=== PATIENT | male | born 1975 | race Caucasian/White ===

== ENCOUNTER → 2019-07-08 18:46 | Outpatient (ROUT) | payer OTHER, SELFPAY ==
[2019-07-08 19:03] LABS: Add Manual Diff / Slide Review NO; Basophils Absolute Auto 0 /uL (0-100); Basophils Percent Auto 0.3 % (0-2); Eosinophils Absolute Auto 100 /uL (0-450); Eosinophils Percent Auto 1.6 % (2-4); Hematocrit 45.6 % (41-53); Hemoglobin 15.6 g/dL (13.5-17.5); Lymphocytes Absolute Auto 2400 /uL (1100-4500); Lymphocytes Percent Auto 39.8 % (25-40); Mean Corpuscular HGB Conc 34.2 % (30-36); Mean Corpuscular Hemoglobin 31.1 PG (26-34); Mean Corpuscular Volume 90.8 fL (80-100); Monocytes Absolute Auto 400 /uL (0-900); Monocytes Percent Auto 6.1 % (3-14); Neutrophils Absolute Auto 3100 /uL (1500-7000); Neutrophils Percent Auto 52.2 % (50-75); Platelet Count 244 X10^3/uL (150-400); Red Blood Cell Count 5.02 X10^6/uL (4.5-5.9); Red Cell Distribution Width 12.7 % (11.6-14.8); White Blood Cell Count 5.9 X10^3/uL (4.5-11.0)
[2019-07-08 19:16] LABS: Alanine Aminotransferase 40 IU/L (<50); Albumin 4.6 g/dL (3.5-5.0); Albumin Globulin Ratio 1.8 (1.0-2.8); Alkaline Phosphatase 67 U/L (38-126); Aspartate Aminotransferase 41 IU/L (17-59); Bilirubin Total 0.9 mg/dL (0.2-1.3); Blood Urea Nitrogen 17 mg/dL (9-20); Calcium 10.1 mg/dL (8.4-10.2); Carbon Dioxide 31 mmol/L (22-32); Chloride 100 mmol/L (98-107); Cholesterol 249 mg/dL (140-199); Estimated Glomerular Filt Rate > 60.0 mL/min (>60); Globulin 2.6 g/dL (1.7-4.1); Glucose 83 mg/dL (70-100); HDL Cholesterol 41 mg/dL (40-60); HEMOLYSIS < 15 (0-50); LDL Cholesterol Calculated 167 mg/dL (<100); Magnesium 2.3 mg/dL (1.6-2.3); Potassium 4.4 mmol/L (3.4-5.1); Sodium 139 mmol/L (137-145); Total Protein 7.2 g/dL (6.3-8.2); Triglycerides 207 mg/dL (35-150)
[2019-07-08 19:17] LABS: C-Reactive Protein Quant < 0.5 mg/dL (<1.0)
[2019-07-08 19:29] LABS: Erythrocyte Sedimentation Rate 1 MM/HR (0-15)
[2019-07-08 19:30] LABS: Vitamin D 25 Hydroxy (D3) 33.3 ng/mL (30.0-100.0)
== END ==
PROVIDERS: Visit Provider Physician Assistant
DX: M79.10 Myalgia, unspecified site (principal); E55.9 Vitamin D deficiency, unspecified; E78.2 Mixed hyperlipidemia
CPT/HCPCS: 80053; 80061; 82306; 83735; 85025; 85651; 86140

== ENCOUNTER → 2019-07-14 14:28 | Outpatient (CLI) | payer OTHER, SELFPAY ==
--- NOTE | 2019-07-14 | DI.US.S_ITS ---
PROCEDURE: US SCROTUM INDICATIONS: inguinal hernia/testicular mass with pain TECHNIQUE: Real-time scanning was performed of the scrotum and testicles, with image documentation. Color and pulse Doppler interrogation was performed of both testicles. COMPARISON: None. FINDINGS: Right: Testicle is normal in size at 3.6 x 2.7 x 3.1 cm, and homogenous in echotexture. Epididymis is normal in overall size and morphology. 2 mm epididymal cyst. Small. hydrocele. No varicoceles. Overlying scrotal skin is normal in thickness. Left: Testicle is normal in size at 4.0 x 2.6 x 3.1 cm, and homogeneous in echotexture. Epididymis is normal in overall size and morphology. Small hydrocele. No varicoceles. Overlying scrotal skin is normal in thickness. Doppler: Color and pulse Doppler demonstrate normal and symmetric arterial flow in both testicles. Reducible, fat-containing right inguinal hernia present. IMPRESSION: 1. 2 mm right epididymal cyst. 2. Normal testicles bilaterally. 3. Right inguinal hernia. 4. Small hydroceles. Dictated by: John PURDY Interpreted: Brannon Benavidez MD on 07/14/2019 at 16:13 Approved by: Brannon Benavidez M.D. on 07/14/2019 at 18:29
== END ==
PROVIDERS: Visit Provider Physician Assistant
DX: K40.90 Unilateral inguinal hernia, without obstruction or gangrene, not specified as recurrent (principal); N50.3 Cyst of epididymis; N43.3 Hydrocele, unspecified
CPT/HCPCS: 76870

== ENCOUNTER → 2019-10-11 09:43 | Outpatient (CLI) | payer OTHER, SELFPAY ==
[2019-10-11 11:34] LABS: Influenza A - CEPHEID Flu A NEGATIVE (NEGATIVE); Influenza B - CEPHEID Flu B NEGATIVE (NEGATIVE)
[2019-10-13 05:35] LABS: COVID19 Sendout Not Detected (Not Detected)
== END ==
PROVIDERS: Visit Provider Physician Assistant
DX: R06.02 Shortness of breath (principal); R05 Cough
CPT/HCPCS: 87502; 87635

== ENCOUNTER → 2019-12-05 16:04 | Outpatient (CLI) | payer OTHER, SELFPAY ==
[2019-12-06 11:02] LABS: COVID19 Sendout NOT DETECTED
== END ==
PROVIDERS: Visit Provider Registered Nurse
DX: Z11.59 Encounter for screening for other viral diseases (principal)
CPT/HCPCS: 87635

== ENCOUNTER 2019-12-08 13:46 | Day surgery (SDC) | payer OTHER, SELFPAY ==
[2019-11-08 12:53] VITALS: BMI 27.4
[2019-12-08] VITALS (14 sets, daily range): BP systolic 93–133; BP diastolic 54–86; PULSE 80–113; RESP 13–23; TEMP 36.5–37.8; O2SAT 92–98; BMI 27.4
[2019-12-08] MEDS: LACTATED RINGERS 1,000 ML 100 ML IV ×2 (14:06→17:15)
--- NOTE | 2019-12-08 14:59 | PM.HP.1 ---
History of Present Illness History of Present Illness Date Patient Seen: 12/08/19 Time Patient Seen: 14:59 Chief complaint: [id number] W/POSS [id number] LAP VS OPEN Narrative: This is a 43-year-old man who has a history of vasectomy, and vasectomy reversal. In July he noticed a bulge in the right groin, and had an ultrasound which revealed a fat containing right inguinal hernia. He also had bilateral hydroceles and epididymal cyst seen on the ultrasound. He has seen a urologist regarding this, and was told not to pursue surgery for these urologic findings at this time. He is also considering a redo vasectomy, but was also told that this may be more complicated given that he has had a vasectomy and a reversal before, so he is holding off at this time. The right groin hernia has been bothering him more and more, and he notices it bulging out more and more. It does completely reduce when he lies down or when he relaxes. He denies any chronic constipation, chronic coughing, but he is a contractor, and does a good bit of lifting heavy things. He denies any symptoms of obstruction or incarceration. He mentions that he does sometimes have a pain that goes from his umbilicus down to his groin, for no clear reason. When he gets this pain it tends to bother him for a couple of days and then resolves. He denies any dysuria or other associated symptoms. He mentions that in addition to being a contractor, he is also on commercial airplane pilot, and would like to be able to get back to work within 2 weeks of surgery. ROS: Positive for joint pain. Thirteen system review is otherwise negative other than as mentioned below and in HPI. PE: GENERAL: Well groomed and cooperative. Appears stated age. Answers questions promptly and appropriately. Vital signs noted. HENT: Normocephalic, atraumatic. Hearing intact. Oral mucosa is pink and moist. EYES: Conjunctiva pink, sclera white, no periorbital swelling. CARDIOVASCULAR: Regular rate. No pedal edema. RESPIRATORY: Non-tachypneic, breathing comfortably on room air. GASTROINTESTINAL: Abdomen soft and non-distended; no significant umbilical hernia GENITALURINARY: No flank tenderness. Reducible right inguinal hernia, mildly tender to palpation. Mild laxity in the left inguinal floor, but no obvious hernia on that side. MUSCULOSKELETAL: Equal tone and mass bilaterally. SKIN: Warm, dry, soft, appropriate color for ethnicity. No other lesions, rashes, or wounds. NEURO: Alert and Oriented X 3. No gross sensory deficits, or cognitive issues. PSYCH: Appropriate affect and mood. Patient History Surgical History Hx of hand surgery (Acute) Hx of shoulder surgery (Acute) Family & Social History Family History Grandfather Heart disease Brother Skin cancer Family/Other Heart disease Social History: household members spouse,children Tobacco & Substance use: Smoking Status Never smoker alcohol intake never Meds Home Medications and Allergies Home Medications Medication Instructions Recorded Confirmed Type multivitamin 1 cap PO DAILY 08/04/19 11/08/19 History Spacer for inhaler #1 ea 10/11/19 10/11/19 Rx fluticasone propionate 220 1 puff INHALATION BID #12 gram 11/07/19 11/08/19 Rx mcg/actuation HFA aerosol inhaler Allergies Allergy/AdvReac Type Severity Reaction Status Date / Time Influenza Virus Vaccines AdvReac Severe hospitalized Verified 10/11/19 10:10 secondary to allergic reaction per patient Exam Vital Signs (past 8 hours): - 12/08/19 14:07 Temperature 98.3 F Pulse Rate 80 Respiratory Rate 20 Blood Pressure 133/86 Pulse Oximetry 98 Oxygen Delivery Method Room Air Objective Imaging US - abdomen: Radiologist's impression: Right groin fat containing inguinal hernia Assessment & Plan Assessment and plan (1) Right inguinal hernia: Current visit: No Status: Acute Assessment & Plan narrative: This is a 43-year-old man with a symptomatic right inguinal hernia. I've discussed with him the potential options for surgery. I've explained the risks and benefits of surgery including risk of bleeding, infection, damage to nearby structures, mesh infection, need for additional procedures, hernia recurrence, urinary dysfunction, sexual dysfunction, testicular atrophy, chronic pain. We discussed the options of open or laparoscopic surgery. He wants to get back to normal activity within a couple of weeks after surgery, and I have explained that the best option for that is going to be laparoscopic approach. I explained that I would see the other side during laparoscopic approach, and asked if he would like me to fix hernia on the left side if I would see one. He would like it fixed if I see one, even though he is asymptomatic on that side. He understands that fix in the left side he has the same degree of risk for all the above surgical risks as on the right side, even though he is asymptomatic on the left side. The patient understands and agrees to go ahead with surgery. 25 minutes were spent face to face with the patient. More than 50% of the time was spent in counseling and co-ordination of care regarding extensive discussion about the potential approaches for surgery, the risks of complications, and the benefits of repairing an asymptomatic left inguinal hernia wall we are going into repair these symptomatic right inguinal hernia. We also discussed the the expected recovery time, and postoperative course. Plan: Schedule for laparoscopic, possible open right and possible bilateral inguinal hernia repair with mesh COVID-19 COVID-19 status: Negative Result date/Date tested (Pos, Neg/Pending): 12/05/19 Time Spent With Patient Time with patient: 25 - 35 minutes Quality VTE Deep Vein Thrombosis/Pulmonary Embolism Present on Admission: No
[2019-12-08] MEDS: CEFAZOLIN 2 GM/100 ML FROZ.PIGGY IV (15:35)
--- NOTE | 2019-12-08 15:57 | SUR.OPER ---
Supine on padded OR bed, head on pillow, arms secured at sides. legs uncrossed, safety belt at thigh,
[2019-12-08] MEDS: BUPIVACAINE 0.25% W/ EPI 30 ML VIAL INJ ×2 (16:16→17:42)
--- NOTE | 2019-12-08 18:09 | PM.OP.1 ---
Operative Date/Time/Diagnoses Date of procedure: 12/08/19 Time of procedure: 18:09 Pre-op diagnosis: right possible left inguinal hernia Post-op diagnosis: other (Bilateral indirect inguinal hernias) Procedure & Clinicians Procedure: Laparoscopic repair of right incarcerated indirect and left indirect inguinal hernia Same procedure as scheduled: Yes Indications: 43 yo man with symptomatic right inguinal hernia. Surgeon: Loli Fan Click Yes if Unassisted: Yes Anesthesia Type: General Operative Notes Findings: Deep indirect inguinal hernias BL; right hernia with incarcerated fat tissue Specimen(s): none sent Prosthetic devices, grafts, tissues, transplants, or devices: BARD 3D max large x 2 Estimated Blood Loss (mL): 10 Procedure in detail: The patient was brought into the operating room and placed supine on the OR table. Sequential compression devices were placed on both legs and turned on. Appropriate perioperative antibiotics were given prior to the start of surgery. General anesthesia was induced the patient was intubated. A Kinsey catheter was placed sterilely in the bladder. The abdomen was prepped and draped in sterile fashion. Surgical time-out was conducted. Local anesthetic was injected under the skin just inferior to the umbilicus and a 5 mm vertical incision was made at this site. The umbilical stalk was grasped with a Stephanie and elevated. A Veress needle was passed through the fascia into proper position. The position was tested with a saline drop test which was appropriate for intra-abdominal Veress needle placement. The abdomen was then insufflated in the usual fashion. Once insufflated to 15 mm Hg the Veress needle was removed and a 5 mm optical trocar was placed under direct vision using a 5 mm 30 degree scope. Once the camera was inside the abdomen I took a look around. There was no injury from port placement. Two additional ports were placed in a similar fashion in the right and left mid clavicular line at the level of the umbilicus, one handbreadth lateral to the umbilicus. The umbilical port was upsized to a 10mm port. Attention was turned to the pelvis, and both inguinal regions were evaluated. Deep bilateral indirect hernias were seen, with incarcerated fat in the right hernia. Beginning on the right side local anesthetic was in the infiltrated into the abdominal wall using 0.25% Marcaine with epi, in the region of the expected peritoneal incision. Metzenbaum scissors attached to cautery were then used to incise the peritoneum transversely from the midline laterally to the ASIS, 10 cm superior to the inguinal hernia defect. The peritoneal flap was developed down to the indirect inguinal hernia defect. The incarcerated fat tissue was removed. Once the flap had been fully developed and the cord structures were completely exposed, and the hernia defect had been fully evaluated, I then exposed the pubic tubercle and push down the bladder so that there was space for good mesh placement. A large 3DMax macro porous mesh was then brought into the field. I placed it through the 10 mm port and positioned it within the surgical defect covering the direct, indirect, and femoral space with 5 cm overlap in each direction. I then secured the mesh to the pubic tubercle in 2 locations using dissolvable surgical tacks. I then secured the mesh to the abdominal wall at its superior edge, far away from the triangle of doom and the triangle of pain. These tacks were placed avoiding the epigastric vessels as well. Once the mesh was secured in place I brought up the peritoneal flap. There was no clam shelling or bending of the mesh when the peritoneal flap was brought up. I then secured the peritoneum up to the abdominal wall using the same surgical tacker, with dissolvable tacks. There was no gapping of the peritoneal flap or exposed mesh. There was a large hernia sac hanging down after the peritoneum was closed. The sac was since together using a PDS endoloop, to avoid inversion of the sac back into the inguinal canal. Attention was then turned to the left side. Local anesthetic was in the infiltrated into the abdominal wall using 0.25% Marcaine with epi, in the region of the expected peritoneal incision. Metzenbaum scissors attached to cautery were then used to incise the peritoneum transversely from the midline laterally to the ASIS, 10 cm superior to the inguinal hernia defect. The peritoneal flap was developed down to the inguinal hernia defect. Once the flap had been fully developed and the cord structures were completely exposed, and the hernia defect had been fully evaluated, I then exposed the pubic tubercle and push down the bladder so that there was space for good mesh placement. A large 3DMax macro porous mesh was then brought into the field. I placed it through the 10 mm port and positioned it within the surgical defect covering the direct, indirect, and femoral space with 5 cm overlap in each direction. I then secured the mesh to the pubic tubercle in 2 locations using dissolvable surgical tacks. I then secured the mesh to the abdominal wall at its superior edge, far away from the triangle of doom and the triangle of pain. These tacks were placed avoiding the epigastric vessels as well. Once the mesh was secured in place I brought up the peritoneal flap. There was no clam shelling or bending of the mesh when the peritoneal flap was brought up. I then secured the peritoneum up to the abdominal wall using the same surgical tacker, with dissolvable tacks. There was no gapping of the peritoneal flap or exposed mesh. At this point the mesh was well positioned, secured, and well covered. There was no exposed mesh, no bleeding, and the peritoneal flaps were in good position. I then infiltrated the abdominal wall in the area of dissection with an additional 20 mL of Exparel, combined with the remaining local anesthetic for total of 80 mL of 0.25% Marcaine for the case. At this point the umbilical port site was closed with 0 Vicryl suture in the fascia using a Pranav-Simón suture Passer. Insufflation was then removed from the abdomen, and the umbilical port site was closed with 3-0 Vicryl in the subcutaneous layers, and 4 Monocryl in the skin. The other 2 port sites were closed with 4 Monocryl in the skin. Each port site was sealed with Dermabond. Local anesthetic was given at each of the port sites and in the fascia. This concluded the procedure. At this point the needle sponge and instrument counts were correct. Patient was awakened from anesthesia and extubated. The Kinsey catheter was removed, and the testicles were brought down to ensure they were in proper position. The patient was transferred to the postanesthesia care unit in stable condition. Complications: none Post-operative Condition: stable Disposition: PACU
[2019-12-08] MEDS: fentaNYL 100 MCG/2 ML INJ IV ×2 (18:32→18:43)
[2019-12-08] MEDS: MEPERIDINE 50 MG/ML INJ IV (18:37)
--- NOTE | 2019-12-08 18:40 | SUR.PHASEI ---
rx given for shakes after pain med. denies nausea
[2019-12-08] MEDS: OXYCODONE/ACETAMINOPHEN 5/325 TABLET 1 TAB PO (18:47)
--- NOTE | 2019-12-08 19:00 | SUR.PHASEI ---
dozing, no longer shaking, acknowledges that he is feeling better. asking appropriate questions.
--- NOTE | 2019-12-08 19:00 | SUR.PHASEI ---
attempted a trial on 2LNP (see VS note). Returned to 3LNP
--- NOTE | 2019-12-08 19:22 | SUR.PHASEI ---
arousing spontaneously, states that pain is 'much better.' HOB elevated and trialing room air in preparation for discharge. resp unlabored, skin warm and dry, sites unchanged. Asking appropriate questions.
--- NOTE | 2019-12-08 20:09 | SUR.PHASEII ---
2000 to home w/daughter. stable on feet to transfer, pain level stable; denies nausea. No questions upon discharge
== END 2019-12-08 20:00 | disposition home or self-care (01) ==
PROVIDERS: PCP Physician Assistant; Referring Provider Surgery; Visit Provider Surgery
PROC: 0YQ64ZZ Repair Left Inguinal Region, Percutaneous Endoscopic Approach (ICD-10-PCS; CPT 49650; principal; 2019-12-08 14:00)
DX: K40.90 Unilateral inguinal hernia, without obstruction or gangrene, not specified as recurrent (principal); J45.909 Unspecified asthma, uncomplicated
CPT/HCPCS: 49650; C1781; J0360; J0690; J1100; J1885; J2175; J2405; J2704; J3010

== ENCOUNTER → 2020-01-24 12:08 | Outpatient (CLI) | payer OTHER, SELFPAY ==
--- NOTE | 2020-01-24 12:09 | DI.US.S_ITS ---
PROCEDURE: US SCROTUM INDICATIONS: SCROTAL SWELLING POST HERNIA REPAIR TECHNIQUE: Real-time scanning was performed of the scrotum and testicles, with image documentation. Color and pulse Doppler interrogation was performed of both testicles. COMPARISON: [facility], , US SCROTUM, 07/14/2019, 15:33. FINDINGS: Right: Testicle is normal in size at 3.1 x 3.1 x 5.1 cm, and homogenous in echotexture. Epididymis is normal in overall size and morphology. No significant sized hydrocele or varicoceles. Overlying scrotal skin is normal in thickness. Left: Testicle is normal in size at 2.7 x 3.1 x 4.3 cm, and homogeneous in echotexture. Epididymis is normal in overall size and morphology. No significant sized hydrocele or varicoceles. Overlying scrotal skin is normal in thickness. Doppler: Color and pulse Doppler demonstrate normal and symmetric arterial flow in both testicles. IMPRESSION: Small bilateral hydroceles are present, normal testicular blood flow is preserved. No sign of varicoceles at either hemiscrotum. Normal testicular parenchyma bilaterally. Dictated by: Shiv Galloway M.D. on 01/24/2020 at 13:07 Approved by: Shiv Galloway M.D. on 01/24/2020 at 13:17
== END ==
PROVIDERS: PCP Physician Assistant; Referring Provider Surgery; Visit Provider Surgery
DX: N50.89 Other specified disorders of the male genital organs (principal); N43.3 Hydrocele, unspecified; Z87.19 Personal history of other diseases of the digestive system; Z98.890 Other specified postprocedural states
CPT/HCPCS: 76870

== ENCOUNTER → 2020-03-16 11:07 | Outpatient (CLI) | payer OTHER, SELFPAY ==
--- NOTE | 2020-03-16 11:08 | DI.US.S_ITS ---
PROCEDURE: US SCROTUM INDICATIONS: HYDROCELE TECHNIQUE: Real-time scanning was performed of the scrotum and testicles, with image documentation. Color and pulse Doppler interrogation was performed of both testicles. COMPARISON: [facility], SCROTUM, 01/24/2020, 12:14. [facility], US SCROTUM, 07/14/2019, 15:33. FINDINGS: Right: Testicle is normal in size at 3.0 x 3.2 x 5.2 cm, and homogenous in echotexture. Epididymis is normal in overall size and morphology. There is a moderate to moderately large right-sided hydrocele and no varicoceles. Overlying scrotal skin is normal in thickness. Left: Testicle is normal in size at 2.8 x 3.3 x 4.5 cm, and homogeneous in echotexture. Epididymis is normal in overall size and morphology. There is a small to moderate left hydrocele but no varicoceles. Overlying scrotal skin is normal in thickness. The left epididymis appears mildly hyperemic compared to the right. Doppler: Color and pulse Doppler demonstrate normal and symmetric arterial flow in both testicles. IMPRESSION: Asymmetric hydroceles moderate to moderately large on the right and small to moderate in size on the left. Asymmetric mild increased blood flow involving the left epididymis, which may reflect a normal variant but could represent mild epididymitis coincidentally present. No varicoceles found. No testicular mass lesion identified. Dictated by: Shiv Galloway M.D. on 03/16/2020 at 14:22 Approved by: Shiv Galloway M.D. on 03/16/2020 at 14:26
== END ==
PROVIDERS: PCP Physician Assistant; Referring Provider Physician Assistant; Visit Provider Specialist
DX: N43.3 Hydrocele, unspecified (principal)
CPT/HCPCS: 76870

== ENCOUNTER → 2020-03-27 08:21 | Outpatient (CLI) | payer OTHER, SELFPAY ==
[2020-03-28 07:52] LABS: COVID19 Sendout Not Detected (Not Detect)
== END ==
PROVIDERS: PCP Physician Assistant; Visit Provider Nurse Practitioner
DX: Z11.59 Encounter for screening for other viral diseases (principal)
CPT/HCPCS: 87635

== ENCOUNTER 2020-03-30 06:08 | Day surgery (SDC) | payer OTHER, SELFPAY ==
[2020-03-29 12:21] VITALS: BMI 27.9
[2020-03-30] VITALS (9 sets, daily range): BP systolic 93–143; BP diastolic 63–93; PULSE 62–91; RESP 10–16; TEMP 35.9–36.7; O2SAT 93–99; BMI 27.9
[2020-03-30] MEDS: LACTATED RINGERS 1,000 ML 25 ML IV ×2 (06:59→10:01)
--- NOTE | 2020-03-30 07:35 | PM.PREOP ---
Pre-operative Note Interval Note History & Physical reviewed/Exam performed by Physician: Yes Changes to H&P: No
[2020-03-30] MEDS: CEFAZOLIN 2 GM/100 ML FROZ.PIGGY IV (07:40)
[2020-03-30] MEDS: BUPIVACAINE LIPOSOME 266 MG/20 ML VIAL INJ (08:27)
[2020-03-30] MEDS: BUPIVACAINE 0.25% W/ EPI 30 ML VIAL INJ (08:28)
--- NOTE | 2020-03-30 09:14 | PM.OP.1 ---
Operative Date/Time/Diagnoses Date of procedure: 03/30/20 Time of procedure: 09:14 Pre-op diagnosis: Bilateral hydroceles Post-op diagnosis: same Procedure & Clinicians Procedure: 1. Bilateral hydrocelectomy Same procedure as scheduled: Yes Indications: Bilateral hydroceles Surgeon: Deann Dickson Click Yes if Unassisted: Yes Anesthesia Type: General Operative Notes Findings: Large tense right hydrocele. Moderate, soft left hydrocele. Closure Type: primary Specimen(s): none sent Applied: drain(s) (Bilateral 15F Luis drain to bulb self suction.) Estimated Blood Loss (mL): 2 Tourniquet time (min): 0 Procedure in detail: The patient was positioned supine and lower abdomen genitalia and groin were then prepped and draped in sterile fashion. 1% lidocaine with epinephrine was then used to infiltrate the midline scrotal raphae a period the needlepoint cautery pen was then utilized to divide the skin and subcutaneous dartos fascial layer the midline anterior scrotum. Dissection was 1st directed toward the right hemiscrotal space. The surface of the tunica vaginalis was encountered and the appropriate plane was then developed. Circumferential blunt dissection was then performed in the right hemiscrotal contents were delivered from within the scrotum proper period The tunica vaginalis was then divided vertically on its anterior surface and clear straw-colored fluid was drained. The tunica vaginalis was then reflected posteriorly and repair was then performed. Utilizing 3 0 Monocryl and a running horizontal mattress technique the repair was completed. At the inferior aspect of the testicle it was then secured to the inferior and posterior wall with a single interrupted stitch. Next, the same steps maneuvers were performed on the left to accomplish bilateral hydrocelectomy. Now, Exparel was then infiltrated into the subcutaneous dartos fascia laterally on either side of the midline incision and in the cutaneous layer. Additional Exparel was utilized to infiltrate 2 areas the inferior lateral aspect of each hemiscrotum. 15F Luis drains were then passed from within to outside through these sites. The drain was positioned appropriately. Excess drain was excised and discarded the distal tips of the drains were then positioned appropriately within each hemiscrotum. The drains were then secured to the skin using a 2 0 silk. The midline dartos fascia was then closed with a running 3 0 Monocryl. The skin was then reapproximated using a running horizontal mattress of 4 0 Monocryl. The skin surfaces were then cleaned and dried and antibiotic ointment was applied along the incision line. Next dry sterile for fluffs were applied to anterior hemiscrotum. The patient was then fitted with an athletic supporter. The patient was then awakened, transferred to [facility], and transferred to recovery in stable condition. Complications: none Post-operative Condition: stable Disposition: PACU Plan for aftercare: Discharge home
[2020-03-30] MEDS: OXYCODONE/ACETAMINOPHEN 5/325 TABLET 1 TAB PO (09:27)
[2020-03-30] MEDS: METOCLOPRAMIDE 10 MG/2 ML INJ IV (09:59)
[2020-03-30] MEDS: ONDANSETRON 4 MG/2 ML INJ IV (09:59)
--- NOTE | 2020-03-30 16:29 | SUR.PHASEII ---
Late entry: Pt in Phase 2 soon became very pale and c/o nausea, medicated with reglan and zofran. BP low, treated with IV fluids. Bp normalized, nausea gradually went away. d/c instructions discussed, GONSALO care discussed, pt left with paperwork on what was instructed, pt left when ready and left in stable condition.
== END 2020-03-30 10:30 | disposition home or self-care (01) ==
PROVIDERS: PCP Physician Assistant; Referring Provider Physician Assistant; Visit Provider Specialist
PROC: (CPT 55041; principal; 2020-03-30 07:45)
DX: N43.3 Hydrocele, unspecified (principal)
CPT/HCPCS: 55041; C9290; J0690; J1100; J1885; J2250; J2405; J2704; J2765; J3010